=== PATIENT | male | born 2000 | race Hispanic/Latino ===

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

== ENCOUNTER 2022-09-08 14:48 | Emergency (ER) | payer SELFPAY | END 2022-09-08 16:11 | disposition left against medical advice (07) | DRG 951 | LOC: ED 14:48 → LWOBS 15:40 | DX: Z53.21 Procedure and treatment not carried out due to patient leaving prior to being seen by health care provider (principal) ==

== ENCOUNTER 2024-03-15 09:32 | Emergency (ER) | payer SELFPAY ==
[~2024-03-15] VITALS: Ht 177.8 cm; Wt 95.2 kg
[2024-03-15 10:14] VITALS: BP 146/88
[2024-03-15] MEDS ORDERED: IBUPROFEN 800 MG/TAB PO ONE (10:25)
[2024-03-15 10:31] VITALS: BP 126/85
[2024-03-15 11:01] VITALS: BP 125/74
[2024-03-15] MEDS ORDERED: NAPROXEN500 MG PO (11:25)
[2024-03-15 11:31] VITALS: BP 113/62
[2024-03-15 11:48] VITALS: BP 113/62
== END 2024-03-15 11:58 | disposition home or self-care (01) | DRG 914 ==
LOC: ED 09:32
PROC: 0HQDXZZ Repair Right Lower Arm Skin, External Approach (ICD-10-PCS; principal; 2024-03-15)
DX: S51.821A Laceration with foreign body of right forearm, initial encounter (principal); W22.8XXA Striking against or struck by other objects, initial encounter; Y93.89 Activity, other specified; Y99.0 Civilian activity done for income or pay

== ENCOUNTER 2024-03-19 14:04 | Emergency (ER) | payer SELFPAY ==
[~2024-03-19] VITALS: Ht 177.8 cm; Wt 95.2 kg
[~2024-03-19 14:04] MED LIST changes: +NAPROXEN500 MG PO
[2024-03-19] MEDS ORDERED: LIDOcaine HCl 1% (Local Anesth.) 20 ML VIAL STI STA (14:13)
[2024-03-19 14:14] VITALS: BP 133/78
[2024-03-19] MEDS ORDERED: POVIDONE IODINE 0.5 OZ/BTL TOP ONE (14:15)
[2024-03-19] MEDS ORDERED: Diph, Acellular Pertussis, Tet 0.5 ML/VIAL (Tdap) SDV IM ONE (14:15)
[2024-03-19] MEDS ORDERED: ceFAZolin 1 GM/VIAL SDV IM ONE ×2 (14:15→16:00)
[2024-03-19] MEDS ORDERED: STERILE WATER 10 ML/VIAL SDV IM ONE ×2 (14:15→16:00)
[2024-03-19 16:08] VITALS: BP 126/78
[2024-03-19] MEDS ORDERED: CEPHALEXIN500 M1 PO (16:08)
== END 2024-03-19 16:05 | disposition home or self-care (01) | DRG 914 ==
LOC: ED 14:04
PROC: 0HQDXZZ Repair Right Lower Arm Skin, External Approach (ICD-10-PCS; principal; 2024-03-19)
DX: S51.821A Laceration with foreign body of right forearm, initial encounter (principal); W22.8XXA Striking against or struck by other objects, initial encounter; Y93.9 Activity, unspecified; Y99.0 Civilian activity done for income or pay